=== PATIENT | female | born 1945 | race Caucasian/White ===

== ENCOUNTER 2019-06-22 10:28 | Outpatient (CLI) | payer MEDICARE, SELFPAY ==
[2019-06-22 10:52] LABS: Basophils Absolute Auto 0.06 K/mm3 (0.00-0.10); Basophils Percent Auto 0.5 % (0.0-1.0); Eosinophils Absolute Auto 0.13 K/mm3 (0.02-0.50); Hematocrit 26.7 % (35.0-42.0); Hemoglobin 7.7 g/dL (11.7-13.8); Immature Granulocyte Absolute 0.07 K/mm3 (0.00-0.00); Immature Granulocyte Percent A 0.6 % (0.0-0.0); Lymphocytes Absolute Auto 1.73 K/mm3 (1.10-4.50); Lymphocytes Percent Auto 13.8 % (18.0-42.0); Mean Corpuscular HGB Conc 28.8 g/dL (32.0-36.0); Mean Corpuscular Hemoglobin 19.3 pg (27.0-31.0); Mean Corpuscular Volume 66.9 fL (78.0-102.0); Mean Platelet Volume 8.9 fl (9.2-11.8); Monocytes Absolute Auto 1.16 K/mm3 (0.10-0.90); Monocytes Percent Auto 9.2 % (2.0-11.0); Neutrophils Absolute Auto 9.4 K/mm3 (1.7-7.2); Neutrophils Percent Auto 74.9 % (50.0-70.0); Platelet Count Result 337 K/mm3 (150-420); Red Blood Count 3.99 M/mm3 (4.20-5.40); Red Cell Distribution Width 19.7 % (11.6-14.4); White Blood Count 12.6 K/mm3 (4.8-10.8)
[2019-06-22 11:07] LABS: Hemoglobin A1C 5.6 % (<5.7)
[2019-06-22 12:05] LABS: Alanine Aminotransferase 15 U/L (14-59); Albumin Level 3.6 g/dL (3.4-5.0); Alkaline Phosphatase 71 U/L (46-116); Anion Gap 13.3 mmol/L (7-16); Aspartate Amino Transferase 18 U/L (15-37); Bilirubin,Total 0.3 mg/dL (0.00-1.00); Blood Urea Nitrogen 8 mg/dL (7-18); Calcium 11.8 mg/dL (8.5-10.1); Carbon Dioxide 26 mmol/L (21-32); Chloride 103 mmol/L (98-108); Estimated Glomerular Filt Rate > 60; Glucose 90 mg/dL (70-99); Osmolality Calculated 284 mOsm/kg (285-295); Potassium 4.3 mmol/L (3.5-5.1); Sodium 138 mmol/L (136-145); Total Protein 6.7 g/dL (6.4-8.2)
[2019-06-22 18:39] LABS: Appearance Urine Clear (Clear); Bilirubin Urine Negative (Negative); Color Urine Yellow (Yellow); Glucose Urine UA Negative (Negative); Ketones Urine Negative (Negative); Leukocyte Esterase Ur Trace LEU/UL (Negative); Nitrate Urine Negative (Negative); Protein Urine Negative (Negative); Specific Grav Ur <= 1.005 (1.010-1.020); Urobilinogen Urine 0.2 mg/dL (0.2-1.0); pH Urine 6.5 (5.0-8.0)
[2019-06-22 19:12] LABS: Add Urine Microscopic? YES; Bacteria Urine Trace /hpf; Blood Urine Trace (Negative); RBC Urine 0-2 /hpf (0-2); Squamous Epithelial Cell Urine Rare /hpf (Few); WBC Urine 0-3 /hpf (0-3)
== END 2019-06-22 10:29 | disposition home or self-care (01) ==
LOC: CHSLAB 10:36
PROVIDERS: PCP Nurse Practitioner Family; Visit Provider Nurse Practitioner Family
DX: R31.9 Hematuria, unspecified (principal); E11.9 Type 2 diabetes mellitus without complications; I10 Essential (primary) hypertension; Z00.00 Encounter for general adult medical examination without abnormal findings
CPT/HCPCS: 36415; 80053; 81001; 83036; 85025

== ENCOUNTER 2019-09-30 15:57 | Outpatient (NON) | payer MEDICARE, SELFPAY | END 2019-09-30 15:58 | PROVIDERS: Visit Provider Nurse Practitioner Family | DX: Z12.4 Encounter for screening for malignant neoplasm of cervix (principal); Z13.89 Encounter for screening for other disorder | CPT/HCPCS: 87491; 87591; 87624; 88141; 88175; G0145 ==

== ENCOUNTER 2019-10-02 07:44 | Outpatient (CLI) | payer MEDICARE, SELFPAY ==
--- NOTE | ~2019-10-02 | US_ITS ---
EXAMINATION: US pelvic complete w TV EXAM DATE: 10/02/2019 09:21 INDICATION: Postmenopausal bleeding. TECHNIQUE: Pelvic transabdominal and transvaginal sonogram was performed. There are multiple graysca le and Doppler images available for interpretation. There is no prior study for comparison. FINDINGS: Uterus measures 8.5 x 7.0 x 5.5 cm, with lobular contour and unable to definitively deline ate the endometrium. There is no free pelvic fluid. Right adnexa: The ovary is not identified. There is no adnexal mass. Left adnexa: The ovary measures 4.1 x 4.6 x 2.9 cm and is morphologically normal. Ovarian vascular fl ow confirmed. IMPRESSION: Lobular uterine contour with poorly delineated endometrium; can't exclude endometrial can cer or fibroids. Recommend pelvic MRI examination for further evaluation. Reviewed, dictated and finalized at location B. IMPRESSION: Lobular uterine contour with poorly delineated endometrium; can't e xclude endometrial cancer or fibroids. Recommend pelvic MRI examination for fur ther evaluation.
--- NOTE | ~2019-10-02 | CT_ITS ---
EXAMINATION: CT lung screening DATE: 10/02/2019 08:24 INDICATION: Chronic cough and COPD, personal history of tobacco dependence, current smoker with 66 pa ck year history TECHNIQUE: Computed tomography (CT) of the chest was performed without intravenous contrast. The dose -length product (DLP) was 68.69 mGy-cm. Automated exposure control and iterative reconstruction techn [employer] were employed. COMPARISON: 07/25/2018 FINDINGS: There is moderate emphysema. There is a 7 mm pleural-based nodule of the right lower lobe o n image 88. A stable 4 mm nodule is present in the left upper lobe on image 51. There is stable right upper lobe nodules measuring up to 4 mm as well. The lungs are free of acute opacities. There is no pleural effusion or pneumothorax. No pathologically enlarged thoracic lymph nodes are identified. The heart size is normal. Calcified coronary artery atherosclerosis is noted. There is a 1.8 cm cyst of the right kidney upper pole. There is moderate thoracic spondylosis. IMPRESSION: 1. Lung-RADS category 3: Probably benign. Followup with noncontrast low-dose chest CT in 6 months is recommended. Reviewed, dictated and finalized at location A. IMPRESSION: 1. Lung-RADS category 3: Probably benign. Followup with noncontrast low-dose ch est CT in 6 months is recommended.
--- NOTE | ~2019-10-02 | XR_ITS ---
XR thoracic spine 2V DATE: 10/02/2019 08:24 INDICATION: Back pain TECHNIQUE: AP, lateral, swimmer views COMPARISON: None FINDINGS: There is mild levoscoliosis of the upper thoracic spine. There is mild degenerative spurring of the thoracic spine. No fracture or bone destruction or spondylolisthesis. The thoracic pedicles are intact. No paraspinal soft tissue thickening. IMPRESSION: Mild levoscoliosis Mild degenerative spurring Reviewed, dictated and finalized at location A.
--- NOTE | ~2019-10-02 | XR_ITS ---
XR_CERV2-3V_CR DATE: 10/02/2019 08:24 INDICATION: Generalized neck pain TECHNIQUE: AP, open-mouth, lateral views COMPARISON: None FINDINGS: Is straightening of the cervical spine which may be secondary to muscle spasm. C1 and C2 are normally aligned and the odontoid process is intact. No fracture or dislocation or lock ed facet or prevertebral soft tissue swelling is evident. There is moderate loss of interspace height and mild posterior spurring at C5-6 consistent with degen erative disc disease. The remaining cervical interspaces appear relatively preserved. There is uncovertebral joint spurring on the right at C5-6. IMPRESSION: Degenerative disc disease and uncovertebral joint spurring on the right at C5-6 Reviewed, dictated and finalized at Location A. Reviewed, dictated and finalized at location A. IMPRESSION: Degenerative disc disease and uncovertebral joint spurring on the r ight at C5-6
== END 2019-10-02 07:45 | disposition home or self-care (01) ==
LOC: CHSIMG 07:46
PROVIDERS: PCP Nurse Practitioner Family; Visit Provider Nurse Practitioner Family
DX: Z12.2 Encounter for screening for malignant neoplasm of respiratory organs (principal); Z87.891 Personal history of nicotine dependence; N93.9 Abnormal uterine and vaginal bleeding, unspecified; M54.9 Dorsalgia, unspecified; G89.29 Other chronic pain
CPT/HCPCS: 72040; 72070; 76830; 76856; G0297

== ENCOUNTER 2019-10-13 09:13 | Outpatient (CLI) | payer MEDICARE, SELFPAY ==
--- NOTE | ~2019-10-13 | MR_ITS ---
EXAMINATION: MR pelvis wo/w con DATE: 10/13/2019 11:29 INDICATION: Uterine mass. Cervical cancer. Postmenopausal bleeding. TECHNIQUE: Magnetic resonance imaging (MRI) of the pelvis was performed without and with 10 mL MultiH ance intravenous contrast. Sequences included coronal and axial T2-weighted FS FSE, axial T1-weighted FS FSE, axial LAVA, coronal FS FIESTA, coronal LAVA-flex, axial T2-weighted FSE, axial dual-echo T1- weighted FSPGR, axial FS FIESTA, axial DWI, and small [id number] sagittal, coronal, and axial T2-w eighted FSE. Postcontrast sequences included coronal LAVA-flex and a time course of axial LAVA. COMPARISON: Ultrasound 10/02/2019 FINDINGS: There is a 5.7 x 5.9 x 5.9 cm mass centered at the cervix with involvement of the posterior wall of b ladder. The intrauterine cavity is dilated to 2.4 cm and fluid-filled. Bilateral adnexal masses that may be normal ovaries are identified. There is bilateral external iliac lymphadenopathy. For example, a left external iliac node measures 2.0 x 1.7 cm. There is trace pelvic ascites. IMPRESSION: 1. 5.9 cm mass of the uterine cervix with involvement of the posterior bladder wall, consistent with primary malignancy. 2. Bilateral external iliac lymphadenopathy, consistent with metastatic disease. Reviewed, dictated and finalized at location A. IMPRESSION: 1. 5.9 cm mass of the uterine cervix with involvement of the posterior bladder wall, consistent with primary malignancy. 2. Bilateral external iliac lymphadenopathy, consistent with metastatic disease .
[2019-10-13 09:32] LABS: Estimated Glomerular Filt Rate 59
== END 2019-10-13 09:14 | disposition home or self-care (01) ==
LOC: CHSIMG 09:15
PROVIDERS: PCP Nurse Practitioner Family; Visit Provider Nurse Practitioner Family
DX: R93.5 Abnormal findings on diagnostic imaging of other abdominal regions, including retroperitoneum (principal)
CPT/HCPCS: 72197; A9577

== ENCOUNTER 2019-12-22 14:37 | Outpatient (CLI) | payer MEDICARE, SELFPAY ==
[2019-12-22 14:55] LABS: Basophils Absolute Auto 0.05 K/mm3 (0.00-0.10); Basophils Percent Auto 0.5 % (0.0-1.0); Eosinophils Absolute Auto 0.07 K/mm3 (0.02-0.50); Eosinophils Percent Auto 0.7 % (1.0-6.0); Hematocrit 31.9 % (35.0-42.0); Immature Granulocyte Absolute 0.02 K/mm3 (0.00-0.00); Immature Granulocyte Percent A 0.2 % (0.0-0.0); Lymphocytes Absolute Auto 1.97 K/mm3 (1.10-4.50); Lymphocytes Percent Auto 18.6 % (18.0-42.0); Mean Corpuscular HGB Conc 31.3 g/dL (32.0-36.0); Mean Corpuscular Hemoglobin 26.8 pg (27.0-31.0); Mean Corpuscular Volume 85.5 fL (78.0-102.0); Mean Platelet Volume 9.6 fl (9.2-11.8); Monocytes Absolute Auto 0.74 K/mm3 (0.10-0.90); Neutrophils Absolute Auto 7.8 K/mm3 (1.7-7.2); Platelet Count Result 313 K/mm3 (150-420); Red Blood Count 3.73 M/mm3 (4.20-5.40); Red Cell Distribution Width 15.5 % (11.6-14.4); White Blood Count 10.6 K/mm3 (4.8-10.8)
[2019-12-22 14:56] LABS: Add Urine Microscopic? YES; Appearance Urine Sl Cloudy (Clear); Bilirubin Urine Negative (Negative); Blood Urine 2+ (Negative); Color Urine Yellow (Yellow); Glucose Urine UA Negative (Negative); Ketones Urine Negative (Negative); Leukocyte Esterase Ur 2+ LEU/UL (Negative); Nitrate Urine Negative (Negative); Protein Urine 1+ (Negative); Urobilinogen Urine 0.2 mg/dL (0.2-1.0)
[2019-12-22 15:05] LABS: Squamous Epithelial Cell Urine Rare /hpf (Few); WBC Urine 51-75 /hpf (0-3)
[2019-12-22 16:14] LABS: Alanine Aminotransferase 18 U/L (14-59); Alkaline Phosphatase 88 U/L (46-116); Anion Gap 8 mmol/L (8-16); Aspartate Amino Transferase 20 U/L (15-37); Bilirubin,Total 0.5 mg/dL (0.00-1.00); Blood Urea Nitrogen 10 mg/dL (7-18); Carbon Dioxide 27 mmol/L (21-32); Chloride 98 mmol/L (98-108); Estimated Glomerular Filt Rate > 60; Glucose 89 mg/dL (70-99); Osmolality Calculated 274 mOsm/kg (285-295); Potassium 4.5 mmol/L (3.5-5.1); Sodium 133 mmol/L (136-145); Total Protein 7.2 g/dL (6.4-8.2)
[2019-12-22 16:17] LABS: Calcium 12.2 mg/dL (8.5-10.1)
== END 2019-12-22 14:38 | disposition home or self-care (01) ==
LOC: CHSLAB 14:39
PROVIDERS: PCP Nurse Practitioner Family; Visit Provider Nurse Practitioner Family
DX: Z01.818 Encounter for other preprocedural examination (principal); R82.90 Unspecified abnormal findings in urine
CPT/HCPCS: 36415; 80053; 81001; 85025; 87086; 87088

== ENCOUNTER 2019-12-24 15:50 | Outpatient (CLI) | payer MEDICARE, SELFPAY ==
[2019-12-24 16:23] LABS: Hemoglobin A1C < 4.7 % (<5.7)
[2019-12-24 16:50] LABS: Alanine Aminotransferase 17 U/L (14-59); Alkaline Phosphatase 83 U/L (46-116); Anion Gap 8 mmol/L (8-16); Aspartate Amino Transferase 15 U/L (15-37); Bilirubin,Total 0.4 mg/dL (0.00-1.00); Blood Urea Nitrogen 9 mg/dL (7-18); Calcium 11.8 mg/dL (8.5-10.1); Carbon Dioxide 24 mmol/L (21-32); Chloride 97 mmol/L (98-108); Estimated Glomerular Filt Rate > 60; Glucose 121 mg/dL (70-99); Osmolality Calculated 267 mOsm/kg (285-295); Potassium 4.7 mmol/L (3.5-5.1); Sodium 129 mmol/L (136-145); Total Protein 7.1 g/dL (6.4-8.2)
== END 2019-12-24 15:51 | disposition home or self-care (01) ==
LOC: CHSLAB 15:52
PROVIDERS: PCP Nurse Practitioner Family; Visit Provider Nurse Practitioner Family
DX: E87.1 Hypo-osmolality and hyponatremia (principal); E11.9 Type 2 diabetes mellitus without complications
CPT/HCPCS: 36415; 80053; 83036

== ENCOUNTER 2020-02-01 16:29 | Emergency (ER) | payer MEDICARE, SELFPAY ==
--- NOTE | ~2020-02-01 | CT_ITS ---
EXAMINATION: CT brain wo con DATE: 02/01/2020 17:52 INDICATION: Confusion and dizziness TECHNIQUE: Computed tomography (CT) of the head was performed without intravenous contrast. The dose- length product was 605.33 mGy-cm. The mA was adjusted according to patient size. Iterative reconstruc tion technique was employed. COMPARISON: CT dated 03/26/2016 FINDINGS: Generalized atrophy. There are scattered moderate periventricular and subcortical white mat ter changes, most likely related to small vessel ischemic disease (microangiopathy). No ventriculomeg po or midline shift. Basilar cisterns are patent. There is intracranial atherosclerosis. No acute in tracranial hemorrhage, infarction, mass or mass effect. There is mucosal thickening left maxillary si nus. Mastoids are pneumatized. Small bilateral mastoid effusions. IMPRESSION: 1. No acute intracranial abnormality. 2: Small mastoid effusions. Mild left maxillary sinus disease. 3: Chronic age-related findings. Reviewed, dictated and finalized at location A.
[2020-02-01 17:07] VITALS: BP 136/70; PULSE 56; RESP 20; TEMP 36.6; O2SAT 99
--- NOTE | 2020-02-01 17:18 | ECG_ITS ---
Measurements Intervals [place] Rate: 57 P: 87 [place]: 183 QRS: 14 QRSD: 86 T: 36 QT: 427 QTc: 416 Interpretive Statements SINUS BRADYCARDIA BORDERLINE T WAVE ABNORMALITY- ANTERIOR LEADS BASELINE ARTIFACT- I, II, III, AVR, V3 BORDERLINE ECG Electronically Signed On 02-01-2020 20:24:23 CDT by Silas Wiggins D.O.
[2020-02-01] MEDS: SODIUM CHLORIDE 0.9% IV 1,000 ML 999 ML IV CONT (17:35)
[2020-02-01 17:39] LABS: Eosinophils Percent Auto 1.8 % (1.0-6.0); Hematocrit 25.7 % (35.0-42.0); Hemoglobin 8.3 g/dL (11.7-13.8); Immature Granulocyte Absolute 0.05 K/mm3 (0.00-0.00); Immature Granulocyte Percent A 0.9 % (0.0-0.0); Immature Platelet Fraction Pct 1.8 % (1.0-7.0); Lymphocytes Absolute Auto 0.16 K/mm3 (1.10-4.50); Lymphocytes Percent Auto 2.9 % (18.0-42.0); Mean Corpuscular HGB Conc 32.3 g/dL (32.0-36.0); Mean Corpuscular Hemoglobin 26.4 pg (27.0-31.0); Mean Corpuscular Volume 81.8 fL (78.0-102.0); Monocytes Absolute Auto 0.46 K/mm3 (0.10-0.90); Monocytes Percent Auto 8.4 % (2.0-11.0); Neutrophils Absolute Auto 4.7 K/mm3 (1.7-7.2); Platelet Count Result 148 K/mm3 (150-420); Red Blood Count 3.14 M/mm3 (4.20-5.40); White Blood Count 5.5 K/mm3 (4.8-10.8)
[2020-02-01 17:56] LABS: Alanine Aminotransferase 23 U/L (14-59); Albumin Level 3.2 g/dL (3.4-5.0); Alkaline Phosphatase 83 U/L (46-116); Anion Gap 9 mmol/L (8-16); Aspartate Amino Transferase 16 U/L (15-37); Bilirubin,Total 0.3 mg/dL (0.00-1.00); Blood Urea Nitrogen 10 mg/dL (7-18); Calcium 10.1 mg/dL (8.5-10.1); Carbon Dioxide 27 mmol/L (21-32); Chloride 97 mmol/L (98-108); Estimated CRCL calculation 48 ml/min; Estimated Glomerular Filt Rate > 60; Glucose 130 mg/dL (70-99); Lactic Acid Reflex 1.4 mmol/L (0.4-2.0); Osmolality Calculated 277 mOsm/kg (285-295); Sodium 133 mmol/L (136-145); Total Protein 6.4 g/dL (6.4-8.2); Troponin I 0.02 ng/mL (0.00-0.056)
--- NOTE | 2020-02-01 18:03 | ED.GENADULT ---
HPI - General Adult General Chief complaint: Altered Mental Status Stated complaint: confusion,dizzy,lightheaded History of Present Illness HPI narrative: This is a 74-year-old female with a past medical history of cervical cancer received radiation therapy today and presents with her with a feeling of being faint and lightheaded with some mild confusion, current assessment patient is back to her baseline, with some no nausea vomiting no abdominal pain no chest pain no fever chills no diarrhea constipation. Patient has a history of cervical cancer receive radiation therapy today and is scheduled for chemotherapy in the morning. Patient has a history of COPD, generalized anxiety disorder diabetes and COPD. No dysuria no hematuria no diarrhea constipation. Onset (ago): hour(s) Severity: mild Relieving factors: none Exacerbating factors: none Associated symptoms: confusion Related Data Home Medications Medication Instructions Recorded Confirmed aspirin 325 mg PO DAILY 02/01/20 02/01/20 esomeprazole magnesium 40 mg PO DAILY 02/01/20 02/01/20 hydrocodone-acetaminophen 1 tablet PO Q6H PRN 02/01/20 02/01/20 metformin 1,000 mg PO BID 02/01/20 02/01/20 ondansetron HCl 4 mg PO Q6H PRN 02/01/20 02/01/20 tiotropium bromide [Spiriva with 1 cap INHALATION DAILY 02/01/20 02/01/20 HandiHaler] Allergies Allergy/AdvReac Type Severity Reaction Status Date / Time No Known Allergies Allergy Verified 12/22/19 14:12 Review of Systems Review of Systems: All systems reviewed & are unremarkable except as noted in HPI and below PMFSH Past Medical History Medical History (Updated 02/01/20 @ 18:09 by Diallo Joaquin MD) Age related osteoporosis Atherosclerotic heart disease [place] coronary artery w/angina pectoris Chronic back pain COPD (chronic obstructive pulmonary disease) Dorsalgia SANJANA (generalized anxiety disorder) HTN (hypertension) Hyperparathyroidism Tobacco dependence Type 2 diabetes mellitus Vitamin D deficiency Surgical History Surgical History History of bilateral salpingectomy Age 27 Family History Family History Mother Family history of kidney stones Brother Family history of kidney stones Family history of malignant neoplasm of skin Father Family history of coronary artery disease Family history of type 2 diabetes mellitus Social History Social History Smoking packs per day: 1.25 Smoking cigarettes per day: 25.0 Years smoked: 53 Smoking pack-years: 66.25 Smoking status: Current every day smoker Tobacco type: cigarettes Gender identity (if verbalized by the patient): Female Exam Const: General: no acute distress and alert Orientation/consciousness: patient oriented x3 HENMT: Head: normal to inspection Eyes: Pupils: Equal, round and reactive pupils present Neck: Neck: normal visual inspection, no lymphadenopathy and no meningeal signs Chest: Chest palpation & inspection: normal inspection of the chest Resp: Effort & Inspection: normal respiratory effort Cardio: Rate: regular rate Rhythm: regular rhythm GI: GI Palp: Yes Soft to palpation : General: Yes no CVA tenderness Urinary Catheter: Urinary Catheter: patent and draining Back/Spine/Pelvis: Back: no CVA tenderness Skin: General skin exam: normal color Rashes: no rashes Neuro: General: patient oriented x3, moves all extremities, no meningeal signs and no focal motor deficits Extrem: General: normal to inspection Psych: Appearance: grossly normal Affect: normal affect Attitude: cooperative Thought content: Yes Normal thought content present Course Course Emergency Course: Reassessment of patient, doing much better with no current symptoms. Patient is resting comfortably and discussed the findings of her CT scan and laboratory
[2020-02-01] MEDS: POTASSIUM CHLORIDE 20 MEQ TABLET 40 MEQ PO (18:11)
[2020-02-01 18:40] VITALS: BP 142/74; PULSE 62; RESP 20; O2SAT 96
== END 2020-02-01 18:42 | disposition home or self-care (01) ==
PROVIDERS: Emergency Provider Emergency Medicine; PCP Nurse Practitioner Family
DX: F41.1 Generalized anxiety disorder (principal); E87.6 Hypokalemia; R42 Dizziness and giddiness; F17.200 Nicotine dependence, unspecified, uncomplicated; M81.0 Age-related osteoporosis without current pathological fracture; J44.9 Chronic obstructive pulmonary disease, unspecified; I10 Essential (primary) hypertension; E11.9 Type 2 diabetes mellitus without complications
CPT/HCPCS: 36415; 70450; 80053; 83605; 84484; 85025; 85055; 93005; 96360; 99283; 99284; A9270; J7030

== ENCOUNTER 2020-02-08 14:47 | Outpatient (NON) | payer MEDICARE, SELFPAY ==
[2020-02-08 15:13] LABS: Hematocrit 25.9 % (35.0-42.0); Hemoglobin 8.3 g/dL (11.7-13.8); Immature Platelet Fraction Pct 2.6 % (1.0-7.0); Mean Corpuscular Volume 81.2 fL (78.0-102.0); Mean Platelet Volume 10.1 fl (9.2-11.8); Platelet Count Result 113 K/mm3 (150-420); Red Blood Count 3.19 M/mm3 (4.20-5.40); Red Cell Distribution Width 17.2 % (11.6-14.4); White Blood Count 3.5 K/mm3 (4.8-10.8)
[2020-02-08 15:36] LABS: Alanine Aminotransferase 18 U/L (14-59); Albumin Level 3.1 g/dL (3.4-5.0); Alkaline Phosphatase 69 U/L (46-116); Anion Gap 9 mmol/L (8-16); Aspartate Amino Transferase 15 U/L (15-37); Bilirubin,Total 0.4 mg/dL (0.00-1.00); Blood Urea Nitrogen 12 mg/dL (7-18); Calcium 9.7 mg/dL (8.5-10.1); Carbon Dioxide 24 mmol/L (21-32); Chloride 94 mmol/L (98-108); Estimated Glomerular Filt Rate > 60; Glucose 99 mg/dL (70-99); Osmolality Calculated 263 mOsm/kg (285-295); Potassium 3.2 mmol/L (3.5-5.1); Sodium 127 mmol/L (136-145); Total Protein 5.7 g/dL (6.4-8.2)
[2020-02-08 15:47] LABS: Band Neutrophils Percent 2 % (0-6); Basophils Percent Manual 0 % (0-1); Eosinophils Absolute Manual 0.07 K/mm3 (0.02-0.5); Eosinophils Percent Manual 2 % (1-6); Lymphocytes Absolute Manual 0.07 K/mm3 (1.1-4.5); Lymphocytes Percent Manual 2 % (18-44); Metamyelocytes Percent 1 %; Monocytes Absolute Manual 0.24 K/mm3 (0.1-0.90); Monocytes Percent Manual 7 % (3-9); Neutrophils Absolute Manual 3.08 K/mm3 (1.7-7.2); Neutrophils Percent Manual 86 % (46-73); Total Cells Counted 100
[2020-02-11 10:24] LABS: Vitamin D 25 Hydroxy 32 ng/mL (30-100)
== END 2020-02-08 14:48 ==
LOC: CHSLAB 14:50
PROVIDERS: PCP Nurse Practitioner Family; Visit Provider Nurse Practitioner Family
DX: D64.9 Anemia, unspecified (principal); Z79.899 Other long term (current) drug therapy; E87.6 Hypokalemia
CPT/HCPCS: 36415; 80053; 82306; 85025; 85055

== ENCOUNTER 2020-03-09 10:01 | Emergency (ER) | payer MEDICARE, SELFPAY ==
--- NOTE | ~2020-03-09 | CT_ITS ---
EXAMINATION: CT abdomen pelvis w con DATE: 03/09/2020 15:00 INDICATION: Abdomen injury. Hypotension. TECHNIQUE: Computed tomography (CT) of the abdomen and pelvis was performed with 100 mL Omnipaque 350 intravenous contrast. Automated exposure control and iterative reconstruction technique were employe d. The dose-length product was 605.33 mGy-cm. COMPARISON: CT abdomen and pelvis 10/21/2015, chest CT 10/02/2019, pelvis MRI 10/13/19 FINDINGS: The visualized portions of the lung bases demonstrate moderate emphysema and dependent atel ectasis. There is a chronic 6 mm nodule in right lower lobe, likely benign. There is a moderate-sized left pleural effusion measuring greater than simple fluid in attenuation, consistent with hemothorax . The heart size is normal. No pericardial effusion. The liver, spleen, gallbladder, pancreas, and ad renal glands are normal. There are cysts in the kidneys measuring up to 2.0 cm on the left. There are no dilated loops of bowel. The appendix is normal. The endometrial complex measures 18 mm, likely fl uid build-up from cervical stenosis from cervical cancer. There is left para-aortic lymphadenopathy a nd bilateral external iliac lymphadenopathy. For example, a left para-aortic node measures 2.4 x 1.5 cm. There is trace pelvic ascites. There are acute fractures of left 10th and 11th ribs. There is mod erate thoracolumbar spondylosis. IMPRESSION: 1. Acute fractures of left 10th and 11th ribs. 2. Moderate-sized left hemothorax. 3. Pelvic and retroperitoneal lymphadenopathy, consistent with metastatic disease from cervical cance r. Reviewed, dictated and finalized at location A. ESS INSTALLER IMPRESSION: 1. Acute fractures of left 10th and 11th ribs. 2. Moderate-sized left hemothorax. 3. Pelvic and retroperitoneal lymphadenopathy, consistent with metastatic disea se from cervical cancer.
--- NOTE | ~2020-03-09 | CT_ITS ---
EXAMINATION: CT brain wo con DATE: 03/09/2020 15:00 INDICATION: Possible seizure for 2 days. Hypotension. TECHNIQUE: Computed tomography (CT) of the head was performed without intravenous contrast. The dose- length product was 605.33 mGy-cm. The mA was adjusted according to patient size. Iterative reconstruc tion technique was employed. COMPARISON: CT dated 02/01/2020 FINDINGS: Generalized atrophy. There are scattered mild periventricular and subcortical white matter changes, most likely related to small vessel ischemic disease (microangiopathy). No acute intracrania l hemorrhage, infarction, mass or mass effect. No ventriculomegaly or midline shift. There is intracr anial atherosclerosis. Small mastoid effusions. Minimal left maxillary sinus disease. IMPRESSION: 1. No acute intracranial abnormality. Reviewed, dictated and finalized at location B. OOD STOCK GRADER
--- NOTE | ~2020-03-09 | CT_ITS ---
EXAMINATION: CT thoracic lumbar wo con EXAM DATE: 03/09/2020 12:47 INDICATION: fall, back pain Fall 2 days ago, LBP, midback pain, LT sd post/ant CP/rib pain . TECHNIQUE: Spiral CT thoracolumbar spine was performed without contrast. Axial, coronal and sagittal images of the thoracic spine were reviewed. Axial, coronal and sagittal images of the lumbar spine we re reviewed. The dose-length product (DLP) for this examination was 447.00 mGy-cm. The exposure was tailored according to patient size (auto mA exposure control), and iterative reconstruction (ASIR) wa s used as additional dose reduction technique. Correlation is made to MR lumbar spine 07/23/2018. FINDINGS: THORACIC SPINE: Moderate to large left-sided pleural effusion. There is mild to moderate thoracic dis c disease. The vertebral bodies have maintained their heights. There are old mid thoracic spinous pro cess fractures. There is a left 11th rib fracture posteriorly. LUMBAR SPINE: Severe lower lumbar facet arthropathy. Mild to moderate diffuse lumbar disc disease. 2 mm anterolisthesis L4 on L5. There is no evidence of acute lumbar fracture. There is no disc space widening or traumatic vertebral body subluxation suspected. Paraspinal soft tissue is unremarkable. A detailed level by level evaluation of spondylosis can be added as addendum if requested. IMPRESSION: 1. Acute left 11th rib fracture. 2. No acute lumbar findings. 3. Spondylosis. Reviewed, dictated and finalized at location A. ASOUND TECHNICIAN
--- NOTE | ~2020-03-09 | CT_ITS ---
EXAMINATION:CT chest wo con DATE: 03/09/2020 12:47 INDICATION: Chest pain. Shortness of breath. Back pain. TECHNIQUE: Computed tomography (CT) of the chest was performed without intravenous contrast. Automate d exposure control and iterative reconstruction technique were employed. The dose-length product (DLP ) was 447.00 mGy-cm. COMPARISON: Chest CT 10/02/2019 FINDINGS: There is moderate emphysema. There is a 6 mm right lower lobe nodule without change, likely benign. There is a 5 mm nodule in right upper lobe without change, likely benign. There is a moderat e-sized left pleural effusion. There is dependent atelectasis in left lung. The heart size is normal. No pericardial effusion. There are coronary artery calcifications. A left upper extremity peripheral ly inserted central venous catheter (PICC) is seen with tip in the left brachiocephalic vein. There a re acute fractures of left 10th and 11th right ribs. There is moderate thoracic spondylosis. IMPRESSION: 1. Acute fractures of left 10th and 11th ribs. 2. New moderate-sized left pleural effusion. 3. Moderate emphysema. Reviewed, dictated and finalized at location A. PER OFF
[2020-03-09 10:05] VITALS: BP 107/68; PULSE 108; RESP 14; TEMP 36.9; O2SAT 97
--- NOTE | 2020-03-09 10:22 | ED.FALL ---
HPI - Fall General Chief Complaint: Fall Stated Complaint: Ambulance Time Seen by Provider: 03/09/20 10:22 Source: patient and family Mode of arrival: EMS Limitations: no limitations History of Present Illness HPI Narrative: 74-year-old woman was being treated for metastatic cervical cancer brought to the emergency department by EMS after she fell while her was helping her to the bathroom. He states that she kind of threw her head back, became limp, shook her arms and legs, and may have had a brief loss of consciousness. He states that by the time he later on the floor she was conscious again. States that she did not hit her head. She is complaining of back pain and left rib pain. Had chemotherapy, IV magnesium, and other treatments of [place] in [place] yesterday. He states that she had an episode approximately 2 weeks ago where she became unconscious, had shaking and spontaneously recovered all within a few seconds. She denies shortness of breath, other chest pain, nausea, vomiting, black stools, dysuria or hematuria, abdominal pain, limb pain. Her states that she has had 3 falls in the last week The last being unwitnessed in her bathroom 2 or 3 days ago. complaint: fall Onset (ago): hour(s) Fall from: standing Fall witnessed: yes, by family Place fall occurred: home Loss of consciousness: yes Length of LOC: second(s) Prolonged down time: no Symptoms prior to fall: none Context: history of frequent falls Location of injury: chest and back Severity: moderate Quality: sharp Associated symptoms (after fall): weakness Related Data Home Medications Medication Instructions Recorded Confirmed hydrocodone-acetaminophen 1 tablet PO Q6H PRN 02/01/20 03/09/20 diphenoxylate-atropine 2.5 tablet PO DIRECTED 03/09/20 03/09/20 levofloxacin 500 mg PO DAILY 03/09/20 03/09/20 lisinopril 40 mg PO DAILY 03/09/20 03/09/20 magnesium oxide 400 mg PO BID 03/09/20 03/09/20 megestrol 40 mg PO BID 03/09/20 03/09/20 metronidazole 03/09/20 metronidazole 500 mg PO TID 03/09/20 03/09/20 prochlorperazine maleate 5 mg PO QID PRN 03/09/20 03/09/20 Allergies Allergy/AdvReac Type Severity Reaction Status Date / Time No Known Allergies Allergy Verified 03/09/20 10:33 Review of Systems Constitutional: Constitutional: Denies chills, Denies fever(s) and Reports weakness Eyes: Eyes: Denies change in vision and Denies photophobia ENT: Denies dysphagia, Denies nasal congestion and Denies sore throat Cardiovascular: Cardiovascular: Reports as per HPI, Reports chest pain and Denies radiating jaw, neck or arm pain Respiratory: Respiratory: Denies cough and Denies dyspnea Gastrointestinal: Gastrointestinal: Denies abdominal pain, Denies diarrhea, Denies nausea and Denies vomiting Genitourinary: Genitourinary: Denies hematuria and Denies dysuria Musculoskeletal: Musculoskeletal: Reports back pain, Denies arthralgias and Denies joint swelling Integumentary/Breasts: Skin/Breast: Denies pruritus, Denies erythema and Denies rash Neurologic: Denies vertigo, Reports dizziness and Denies syncope Endocrine: Endocrine: Reports polydipsia Hematologic/Lymphatic: Hematologic/Lymphatic: Denies easy bleeding and Denies easy bruising Allergic/Immunologic: Allergic/Immunologic: Denies lip swelling and Denies tongue swelling [facility] Past Medical History Medical History (Updated 03/09/20 @ 16:16 by Memo Luu MD) Age related osteoporosis Atherosclerotic heart disease [place] coronary artery w/angina pectoris Cervical cancer Chronic back pain COPD (chronic obstructive pulmonary disease) Dorsalgia SANJANA (generalized anxiety disorder) HTN (hypertension) Hyperparathyroidism Tobacco dependence Type 2 diabetes mellitus Vitamin D deficiency Surgical History Surgical History History of bilateral salpingectomy Age 27 Family History Family History (Reviewed 02/08
--- NOTE | 2020-03-09 10:32 | ECG_ITS ---
Measurements Intervals [place] Rate: 105 P: 68 [place]: 133 QRS: 75 QRSD: 71 T: 70 QT: 295 QTc: 391 Interpretive Statements SINUS TACHYCARDIA ATRIAL PREMATURE COMPLEX DELAYED PRECORDIAL R/S TRANSITION BASELINE ARTIFACT- I, II, AVR, AVL, AVF ABNORMAL ECG Electronically Signed On 03-09-2020 10:52:12 [employer]NC MILLING MACHINIST by Silas Wiggins D.O.
[2020-03-09 10:45] LABS: Add Urine Microscopic? NO; Appearance Urine Clear (Clear); Bilirubin Urine Negative (Negative); Blood Urine Negative (Negative); Color Urine Yellow (Yellow); Glucose Urine UA Negative (Negative); Ketones Urine Negative (Negative); Leukocyte Esterase Ur Negative LEU/UL (Negative); Nitrate Urine Negative (Negative); Protein Urine Negative (Negative); Specific Grav Ur >= 1.030 (1.010-1.020); Urobilinogen Urine 0.2 mg/dL (0.2-1.0)
[2020-03-09 11:00] LABS: Hematocrit 24.8 % (35.0-42.0); Hemoglobin 8.4 g/dL (11.7-13.8); Immature Platelet Fraction Pct 3.6 % (1.0-7.0); Mean Corpuscular HGB Conc 33.9 g/dL (32.0-36.0); Mean Corpuscular Hemoglobin 27.8 pg (27.0-31.0); Mean Corpuscular Volume 82.1 fL (78.0-102.0); Mean Platelet Volume 10.1 fl (9.2-11.8); Platelet Count Result 109 K/mm3 (150-420); Red Blood Count 3.02 M/mm3 (4.20-5.40); Red Cell Distribution Width 18.6 % (11.6-14.4); White Blood Count 6.2 K/mm3 (4.8-10.8)
[2020-03-09] MEDS: ONDANSETRON INJ 4 MG/2 ML VIAL IV PUSH (11:13)
[2020-03-09] MEDS: SODIUM CHLORIDE 0.9% IV 500 ML 999 ML IV CONT (11:13)
[2020-03-09 11:14] LABS: Alanine Aminotransferase 30 U/L (14-59); Albumin Level 2.6 g/dL (3.4-5.0); Alkaline Phosphatase 93 U/L (46-116); Anion Gap 8 mmol/L (8-16); Aspartate Amino Transferase 23 U/L (15-37); Bilirubin,Total 0.6 mg/dL (0.00-1.00); Blood Urea Nitrogen 18 mg/dL (7-18); CRP 0.6 mg/dL (0.0-0.9); Carbon Dioxide 21 mmol/L (21-32); Chloride 101 mmol/L (98-108); Estimated CRCL calculation 31 ml/min; Estimated Glomerular Filt Rate 44; Glucose 141 mg/dL (70-99); INR 1.2; Osmolality Calculated 273 mOsm/kg (285-295); Partial Thromboplastin Time 29.9 SEC (23.90-30.70); Potassium 5.3 mmol/L (3.5-5.1); Prothrombin Time 13.1 Seconds (9.50-12.10); Sodium 130 mmol/L (136-145); Total Protein 4.7 g/dL (6.4-8.2)
[2020-03-09 11:15] LABS: Creatine Kinase 28 U/L (26-192); Magnesium 1.7 mg/dL (1.8-2.4); Phosphorus 3.2 mg/dL (2.6-4.7)
[2020-03-09 11:16] LABS: Lactic Acid Reflex 1.5 mmol/L (0.4-2.0)
[2020-03-09 11:32] LABS: Band Neutrophils Percent 2 % (0-6); Basophils Percent Manual 0 % (0-1); Eosinophils Percent Manual 0 % (1-6); Lymphocytes Absolute Manual 0.93 K/mm3 (1.1-4.5); Lymphocytes Percent Manual 15 % (18-44); Metamyelocytes Percent 1 %; Monocytes Percent Manual 0 % (3-9); Neutrophils Percent Manual 82 % (46-73); Total Cells Counted 100
[2020-03-09 11:34] LABS: Microcytosis 2+ (NORMAL); Platelet Estimate Decreased (Adequate)
[2020-03-09 11:35] LABS: Hypochromasia 2+ (NORMAL); Toxic Granulation Present (NORMAL)
[2020-03-09] MEDS: SODIUM CHLORIDE 0.9% IV 1,000 ML 999 ML IV CONT (13:30)
--- NOTE | 2020-03-09 13:52 | PC.NURSE ---
1315 pt up to commode, stood pt up with RN in room. When pt stood up after being awake and alert, while sitting pt down on commode, pt became unresponsive, head twitching, eyes glazed and wide open, no blinking, blowing respirations, legs and arms stiff for approximately [address] rendon called to room while RN holding pt on commode. After 20 seconds, pt started blinking eyes and becoming arousable, looking around the room. pt alert of whereabouts, v/s stable, 123/80 , 94, 20, color improving. Pt assisted back to bed with assist of [address] rendon in room observing pt. pt alert and oriented when back in bed. feeling better , per pt. cardiac rehab nurse attached with heart rate 101, sinus rythym.
--- NOTE | 2020-03-09 14:22 | PC.NURSE ---
1400 dr rend[address] speaking with dr wallace, oncologist. 1431 to call Asael sosa.
--- NOTE | 2020-03-09 14:41 | PC.NURSE ---
dr rendon talking with Alecia at transfer center for [facility]
--- NOTE | 2020-03-09 15:11 | PC.NURSE ---
report to FLORESITA Gore
[2020-03-09 15:45] VITALS: BP 130/75; PULSE 107; RESP 26; O2SAT 94
--- NOTE | 2020-03-09 15:50 | PC.NURSE ---
Pt had an episode of incont. depends changed at this time.
[2020-03-09] MEDS: MORPHINE SULFATE (*CRX) 2 MG/ML INJ IV PUSH (16:08)
[2020-03-09 17:00] VITALS: BP 129/83; PULSE 105; RESP 20; TEMP 36.9; O2SAT 96
== END 2020-03-09 17:00 | disposition short-term general hospital (02) ==
PROVIDERS: Emergency Provider Emergency Medicine; PCP Nurse Practitioner Family
DX: E87.5 Hyperkalemia (principal); E87.1 Hypo-osmolality and hyponatremia; I95.9 Hypotension, unspecified; S27.1XXA Traumatic hemothorax, initial encounter; R55 Syncope and collapse; W19.XXXA Unspecified fall, initial encounter; F17.200 Nicotine dependence, unspecified, uncomplicated; E11.9 Type 2 diabetes mellitus without complications; M81.0 Age-related osteoporosis without current pathological fracture; E55.9 Vitamin D deficiency, unspecified
CPT/HCPCS: 36415; 70450; 71250; 72128; 72131; 74177; 80053; 81003; 82550; 83605; 83735; 84100; 85025; 85055; 85610; 85730; 86140; 87040; 93005; 96361; 96374; 96375; 99285; J2270; J2405; J7030; J7040; Q9965